=== PATIENT | female | born 1990 | race Two or more races ===

== ENCOUNTER 2017-05-25 14:17 | Emergency (ER) | payer OTHER ==
[~2017-05-25] VITALS: Ht 167.6 cm; Wt 80.5 kg
[2017-05-25 14:29] VITALS: BP 108/79; PULSE 97; RESP 15; O2SAT 100
[2017-05-25] MEDS ORDERED: 0.9% Sodium Chloride 1,000 ML IV ONE (15:01)
--- NOTE | 2017-05-25 15:01 | ED.REPORT ---
HPI-Preg Under 20 Weeks Date of Service May 25, 2017 ED Provider: Dr. Heller Pt is a generally healthy 15 week 27 y/o female presenting to the ED c/ o N/V/D onset 03:30 this morning. The patient had a lot of seafood for dinner last night and woke up during the night experiencing abdominal pain followed by nausea, vomiting, and diarrhea. Her last vomiting episode was prior to arrival. She denies hematemesis, bloody stool, fever, vaginal bleeding. Nursing Notes Stated Complaint: 15 WKS PREG/ CRAMPING, VOMITING, DIARRHEA, HEADACH Chief Complaint: Female Abdominal Pain Nursing Notes Reviewed: Yes Allergies: Coded Allergies: codeine (Verified Allergy, Severe, Anaphylaxis, 05/25/17) Scheduled PRN Metoclopramide (Reglan) 10 Mg Tablet 10 MG PO QID PRN PRN For Nausea General Time Seen by Provider: 15:30 Chief Complaint Other (NVD) Hx Obtained From: Patient Arrived By: Walk-in Onset Occurred: 9 - 12 hours ago Symptom Duration: Since onset Progression Since Onset: Constant Location: : Abdomen diffuse Quality: Aching Radiation: : None Severity: Current: Mild Severity: Maximum: Moderate Recent Healthcare: No recent hospitalization Similar Sx Previous: No Past Medical History Past Medical History None reported Past Surgical History None reported Smoking History Never Smoker Social History Alcohol Use: Denies alcohol use Drug Use: Denies drug use Ambulatory Status Independent Review of Systems Constitutional: Denies: Fever GI: Reports: Abdominal pain, Diarrhea, Nausea, Vomiting Female: Denies: Vaginal bleeding - abnl Complete sys rev & neg: except as marked. Physical Exam Initial Vital Signs Vital Signs (First) Date Time Temp Pulse Resp B/P Pulse Ox O2 Delivery O2 Flow Rate FiO2 05/25/17 14:29 36.2 97 15 108/79 100 Initial VS: Reviewed, Vital signs normal Head / Eyes: Atraumatic, Normocephalic ENT: Mucous membranes moist, Conjunctiva normal Neck: Supple, Full range of motion Respiratory: Breath sounds normal, Clear to auscultation, No respiratory distress Cardiovascular: Regular rate & rhythm, Heart sounds normal, Intact distal pulses Extremities: Vascular intact, Neuro intact, No swelling Skin: Warm, Dry, No cyanosis Neurologic: Alert, Oriented, Nonfocal Psychiatric: Mood/affect normal, Behavior normal, Normal thought content General/Constitutional: Awake, Alert, No acute distress, Well developed, Well nourished, Cooperative, Not toxic appearing Abdomen: Soft, No guarding, No rebound, No distention, No palpable mass Tenderness/Guarding/Rebound: Positive: Tender diffuse (mild) Female Genitourinary: Exam deferred : FHTs NL (140s), Contractions not present, movement present, Uterine size c/w dates, lie nl for age Good cardiac activity Back: Full range of motion, Painless range of motion, No CVA tenderness Interpretation & Diagnostics Lab Results Interpretation Result Diagram: 05/25/17 1520 05/25/17 1520 Test 05/25/17 15:20 05/25/17 15:22 White Blood Count 8.7th/mm3 (3.8-10.1) Red Blood Count 4.56mil/mm3 (3.90-5.20) Hemoglobin 12.4g/dL (12.0-15.6) Hematocrit 37.0% (35.0-46.0) Mean Corpuscular Volume 81.1fL (81-100) Mean Corpuscular Hemoglobin 27.2pg (27.0-35.0) Mean Corpuscular Hemoglobin Concent 33.5% (32.0-37.0) Red Cell Distribution Width 15.0% (12.3-15.4) Platelet Count 163bil/L (150-400) Neutrophils (%) (Auto) 90.7% (40-74) Lymphocytes (%) (Auto) 4.7% (14-46) Monocytes (%) (Auto) 4.2% (4-12) Eosinophils (%) (Auto) 0.1% (0-5) Basophils (%) (Auto) 0.1% (0-3) Sodium Level 135mEq/L (134-144) Potassium Level 4.0mEq/L (3.5-5.2) Chloride Level 101mEq/L (97-108) Carbon Dioxide Level 20mmol/L (18-29) Blood Urea Nitrogen 9mg/dL (6-20) Creatinine 0.55mg/dL (0.57-1.00) Estimat Glomerular Filtration Rate 190mL/min (>59) Glucose Level 104mg/dL (60-99) Calcium Level 8.9mg/dL (8.5-10.1) Magnesium Level 1.6mg/dL (1.6-2.6) Total Bilirubin 0.4mg/dL (0.0-1.2) Aspartate Amino Transf (AST/SGOT) 13U/L (0-50) Alanine Aminotransferase (ALT/SGPT) 10U/L (0-32) Alkaline Phosphatase 51U/L (25-150) Total Protein 6.8g/dL (6.4-8.4) Albumin 3.6g/dL (3.4-5.0) Lipase 26U/L (13-60) Hold Baltazar Top Tube Received (Received) Re-Eval/Medical Decision Med Decision/Clinical Course 27-year-old female 15 weeks with nausea vomiting diarrhea since earlier today. She had crab and shrimp last night. She had no vomiting while she was here. She felt much better after 1 L IV fluids. Labs stable. Vital signs stable. Bedside ultrasound with good cardiac activity of fetus. Patient will be discharged with Reglan to use as needed with plans for oral rehydration follow-up primary doctor return precautions given. Re-Evaluation/Progress : Time of Eval: 16:12 Patient Status: Condition improved, Moderate relief Re-Evaluation/Progress Note: Pt rechecked. Informed pt of plan for discharge. Pt understands and agrees with plan for discharge. F/U instructions and RTER warnings given. All questions addressed. Counseled Regarding: Diagnosis, Lab results, Need for follow-up, When/why to return to ED Discharge & Departure Primary Impression: Viral gastroenteritis Disposition: Home Discharge Condition All VS Reviewed: Yes Condition: Stable Patient Instructions: Gastroenteritis (ED) Additional Instructions: I suspect your symptoms are caused by a viral gastroenteritis. Labs were reassuring. The baby appeared well by bedside ultrasound. Take Reglan as needed for nausea. Follow a BRAT diet (bananas, rice, applesauce, toast) and stay well hydrated with Gatorade and water. Follow-up with your primary care doctor in 1-3 days for a recheck. The [facility] would be happy to see you if you don't have a doctor. Return to the emergency department if you experience fever, worsening abdominal pain, bloody diarrhea or vomit, uncontrolled vomiting or diarrhea, lightheadedness or dizziness, or for other concerning symptoms. Referrals: [facility] Scribe Attestation Portions of this note were transcribed by Nabil Sutton. I, Dr. Heller personally performed the history, physical exam and medical decision-making; I reviewed and confirmed the accuracy of the information in the transcribed note. Corbin Heller MD May 25, 2017 15:01 NABIL SUTTON May 25, 2017 15:31
[2017-05-25] MEDS ORDERED: MetoCLOpramide 5 mg/mL 2 mL Inj IVPUSH ONE (15:05)
[2017-05-25 15:26] LABS: BASOPHILS % (AUTO) 0.1 % (0-3); EOSINOPHILS % (AUTO) 0.1 % (0-5); MONOCYTES % (AUTO) 4.2 % (4-12); Mean Corpuscular Hemoglobin 27.2 pg (27.0-35.0); Mean Corpuscular Volume 81.1 fL (81-100); NEUTROPHILS % (AUTO) 90.7 % (40-74); Platelet Count 163 bil/L (150-400)
[2017-05-25 15:45] LABS: Magnesium 1.6 mg/dL (1.6-2.6)
[2017-05-25] MEDS ORDERED: METO-301 PO (16:10)
== END 2017-05-25 16:48 | disposition home or self-care (01) ==
LOC: SED 14:17
DX: O98.912 Unspecified maternal infectious and parasitic disease complicating pregnancy, second trimester (principal); R10.84 Generalized abdominal pain; R19.7 Diarrhea, unspecified; Z3A.15 15 weeks gestation of pregnancy; Z88.5 Allergy status to narcotic agent
CPT/HCPCS: 36415; 80053; 83690; 83735; 85025; 96361; 96374; 99284; J2765; J7030